=== PATIENT | male | born 1950 | race Caucasian/White ===

== ENCOUNTER → 2018-05-25 | Outpatient (CLI) | payer OTHER ==
[~2018-05-25] MED LIST: ATOR20 PO; Augmentin 875-1 EACH PO; IBUP800 PO; LISI20 PO; Ultram50 MG PO
== END | disposition home or self-care (01) ==
LOC: LAB 11:00 → LAB SHORT 11:00
DX: L03.312 Cellulitis of back [any part except buttock and flank] (principal)
CPT/HCPCS: 87070; 87077; 87186; 87205

== ENCOUNTER → 2023-03-18 | Outpatient (CLI) | payer OTHER ==
[~2023-03-18] MED LIST changes: +FURO40; +KLOR-CON 1010 ME3; +OXYC5
[2023-03-18 13:05] LABS: BASOPHILS ABSOLUTE AUTO 0.04 K/mm3 (0.00-0.23); BASOPHILS PERCENT AUTO 0 % (0-2); EOSINOPHILS PERCENT AUTO 0 % (0-6); Hematocrit 28.2 % (37.0-53.0); Hemoglobin 9.2 g/dL (13.5-17.5); IMMATURE GRAN ABSOLUTE AUTO 0.13 K/mm3 (0.00-0.10); IMMATURE GRAN PERCENT AUTO 1 % (0-1); LYMPHOCYTES ABSOLUTE AUTO 1.06 K/mm3 (0.84-5.20); LYMPHOCYTES PERCENT AUTO 8 % (21-46); MONOCYTES ABSOLUTE AUTO 1.01 K/mm3 (0.16-1.47); MONOCYTES PERCENT AUTO 7 % (4-13); Mean Corpuscular HGB 32.7 pg (26.0-34.0); Mean Corpuscular HGB Conc 32.6 g/dL (31.5-36.5); Mean Corpuscular Volume 100 fL (80-100); Mean Platelet Volume 11.7 fL (9.1-12.4); NEUTROPHILS ABSOLUTE AUTO 11.94 K/mm3 (1.96-9.15); NEUTROPHILS PERCENT AUTO 84 % (41-73); Platelet Count 149 K/mm3 (150-400); RDW Coefficient Variation 18.7 % (11.7-14.2); RDW Standard Deviation 68.4 fL (35.1-46.3); Red Blood Cell Count 2.81 M/mm3 (4.30-5.90); White Blood Cell Count 14.18 K/mm3 (4.00-11.30)
[2023-03-18 13:27] LABS: Albumin, Blood 1.2 g/dL (3.4-5.0); Albumin/Globulin Ratio 0.3 (0.8-1.8); Bilirubin, Total 0.4 mg/dL (0.1-1.0); Bun/Creatinine Ratio 16.5 (12.0-20.0); Calcium, Blood 8.3 mg/dL (8.5-10.1); Creatinine, Blood 1.21 mg/dL (0.60-1.20); Globulin, Blood 3.9 g/dL (2.2-4.0); Potassium, Blood 4.1 mmol/L (3.5-5.5); Total Protein, Blood 5.1 g/dL (6.4-8.2)
== END | disposition home or self-care (01) ==
LOC: LAB SHORT 11:47 → LAB 11:47
PROVIDERS: Internal Medicine Hematology & Oncology
DX: C68.0 Malignant neoplasm of urethra (principal)
CPT/HCPCS: 80053; 85025

== ENCOUNTER → 2023-04-08 | Outpatient (CLI) | payer OTHER ==
[2023-04-08 11:12] LABS: Creatinine Urine 33.4 mg/dL (27.00-270.00); Protein, Urine Quantitative 31.3 mg/dL (0.0-11.9)
== END ==
LOC: LAB SHORT 07:30 → LAB 07:30 → LAB FUT 04-05 13:10
PROVIDERS: Internal Medicine Nephrology
DX: N18.2 Chronic kidney disease, stage 2 (mild) (principal); D63.1 Anemia in chronic kidney disease; E55.9 Vitamin D deficiency, unspecified; D51.8 Other vitamin B12 deficiency anemias; D50.9 Iron deficiency anemia, unspecified
CPT/HCPCS: 81050; 82043; 82570; 84156

== ENCOUNTER 2023-06-25 16:34 | Observation (INO) | payer OTHER ==
[~2023-06-25] VITALS: Ht 177.8 cm; Wt 85.0 kg
[2023-06-25 17:31] LABS: BASOPHILS ABSOLUTE AUTO 0.04 K/mm3 (0.00-0.23); BASOPHILS PERCENT AUTO 0 % (0-2); EOSINOPHILS ABSOLUTE AUTO 0.18 K/mm3 (0.00-0.68); EOSINOPHILS PERCENT AUTO 2 % (0-6); Hematocrit 43.3 % (37.0-53.0); Hemoglobin 14.3 g/dL (13.5-17.5); IMMATURE GRAN ABSOLUTE AUTO 0.02 K/mm3 (0.00-0.10); IMMATURE GRAN PERCENT AUTO 0 % (0-1); LYMPHOCYTES ABSOLUTE AUTO 1.75 K/mm3 (0.84-5.20); LYMPHOCYTES PERCENT AUTO 19 % (21-46); MONOCYTES ABSOLUTE AUTO 0.58 K/mm3 (0.16-1.47); MONOCYTES PERCENT AUTO 6 % (4-13); Mean Corpuscular HGB 30.5 pg (26.0-34.0); Mean Corpuscular Volume 92 fL (80-100); NEUTROPHILS ABSOLUTE AUTO 6.45 K/mm3 (1.96-9.15); NEUTROPHILS PERCENT AUTO 72 % (41-73); Platelet Count 219 K/mm3 (150-400); RDW Coefficient Variation 15.1 % (11.7-14.2); Red Blood Cell Count 4.69 M/mm3 (4.30-5.90); White Blood Cell Count 9.02 K/mm3 (4.00-11.30)
[2023-06-25 17:48] LABS: International Normalized Ratio 1.08; Prothrombin Time Results 11.3 Sec (9.7-11.5)
[2023-06-25 18:02] LABS: Albumin, Blood 1.7 g/dL (3.4-5.0); Albumin/Globulin Ratio 0.3 (0.8-1.8); Bilirubin, Total 0.4 mg/dL (0.1-1.0); Bun/Creatinine Ratio 47.2 (12.0-20.0); Calcium, Blood 8.3 mg/dL (8.5-10.1); Creatinine, Blood 1.44 mg/dL (0.60-1.20); Globulin, Blood 5.6 g/dL (2.2-4.0); Potassium, Blood 3.7 mmol/L (3.5-5.5); Total Protein, Blood 7.3 g/dL (6.4-8.2)
[2023-06-25] MEDS ORDERED: BUME2 PO ×2 (23:10)
[2023-06-25] MEDS ORDERED: POTA10T PO ×2 (23:12)
[2023-06-25 23:40] VITALS: BP 133/94
[2023-06-26 03:17] VITALS: BP 91/57
[2023-06-26 05:45] LABS: BASOPHILS ABSOLUTE AUTO 0.04 K/mm3 (0.00-0.23); BASOPHILS PERCENT AUTO 1 % (0-2); EOSINOPHILS ABSOLUTE AUTO 0.16 K/mm3 (0.00-0.68); EOSINOPHILS PERCENT AUTO 3 % (0-6); Hematocrit 32.5 % (37.0-53.0); Hemoglobin 10.7 g/dL (13.5-17.5); IMMATURE GRAN ABSOLUTE AUTO 0.01 K/mm3 (0.00-0.10); IMMATURE GRAN PERCENT AUTO 0 % (0-1); LYMPHOCYTES ABSOLUTE AUTO 1.22 K/mm3 (0.84-5.20); LYMPHOCYTES PERCENT AUTO 21 % (21-46); MONOCYTES ABSOLUTE AUTO 0.32 K/mm3 (0.16-1.47); MONOCYTES PERCENT AUTO 6 % (4-13); Mean Corpuscular HGB 30.5 pg (26.0-34.0); Mean Corpuscular HGB Conc 32.9 g/dL (31.5-36.5); Mean Corpuscular Volume 93 fL (80-100); Mean Platelet Volume 11.2 fL (9.1-12.4); NEUTROPHILS ABSOLUTE AUTO 4.01 K/mm3 (1.96-9.15); NEUTROPHILS PERCENT AUTO 70 % (41-73); Platelet Count 170 K/mm3 (150-400); RDW Coefficient Variation 15.3 % (11.7-14.2); RDW Standard Deviation 50.6 fL (35.1-46.3); Red Blood Cell Count 3.51 M/mm3 (4.30-5.90); White Blood Cell Count 5.76 K/mm3 (4.00-11.30)
[2023-06-26 06:48] LABS: Albumin, Blood 1.8 g/dL (3.4-5.0); Albumin/Globulin Ratio 0.4 (0.8-1.8); Bilirubin, Total 0.6 mg/dL (0.1-1.0); Bun/Creatinine Ratio 51.2 (12.0-20.0); Calcium, Blood 7.6 mg/dL (8.5-10.1); Creatinine, Blood 1.21 mg/dL (0.60-1.20); Globulin, Blood 4.1 g/dL (2.2-4.0); Potassium, Blood 3.4 mmol/L (3.5-5.5); Total Protein, Blood 5.9 g/dL (6.4-8.2)
[2023-06-26 07:36] VITALS: BP 99/64
[2023-06-26 15:49] VITALS: BP 112/79
--- NOTE | 2023-06-26 19:39 | NUR ---
SHIFT SUMMARY PATIENT ALERT AND INDEPENDENT IN THE ROOM. PATIENT TO HAVE THORACENTESIS IN THE MORNING. PATIENT HAS ABDOMINAL PAIN BUT CHOOSES TO ONLY TAKE A PAIN PILL AT NIGHT. PATIENT LIVES ALONE AND IS CONCERNED ABOUT GETTING BACK HOME TO CARE FOR HIS DOG. DR. SCOTT SPOKE WITH ONCOLOGY REGARDING CASE. POSSIBLE RECOMMENDATION FOR PLEURIX DRAIN TO BE PLACED.
[2023-06-26 20:07] VITALS: BP 118/76
[2023-06-27 02:40] VITALS: BP 96/62
--- NOTE | 2023-06-27 06:29 | NUR ---
SHIFT SUMMARY NOC PT A/O X 4. PLEASANT AND COOPERATIVE WITH CARE. DURING ROUNDING RT FOUND PT SPO2 <90% ON RA AND PT PLACED ON 1L/NC. PT HAS THORACENTISIS SCHEDULED FOR TODAY. PT ON TELE RUNNING SINUS RHYTHM IN 'S. PT HAD C/O OF L ABD PAIN AND MEDICATED PER EMAR BEFORE BED. PT POSSIBLE DISCHARGE HOME TODAY. PT IS CURRENTLY RESTING WITH BED IN LOWEST POSITION, AND CALL LIGHT WITHIN REACH.
[2023-06-27 07:25] VITALS: BP 102/64
[2023-06-27 08:32] LABS: BASOPHILS ABSOLUTE AUTO 0.04 K/mm3 (0.00-0.23); BASOPHILS PERCENT AUTO 1 % (0-2); EOSINOPHILS ABSOLUTE AUTO 0.15 K/mm3 (0.00-0.68); EOSINOPHILS PERCENT AUTO 3 % (0-6); Hematocrit 35.6 % (37.0-53.0); Hemoglobin 11.6 g/dL (13.5-17.5); IMMATURE GRAN ABSOLUTE AUTO 0.01 K/mm3 (0.00-0.10); IMMATURE GRAN PERCENT AUTO 0 % (0-1); LYMPHOCYTES ABSOLUTE AUTO 1.68 K/mm3 (0.84-5.20); LYMPHOCYTES PERCENT AUTO 32 % (21-46); MONOCYTES ABSOLUTE AUTO 0.26 K/mm3 (0.16-1.47); MONOCYTES PERCENT AUTO 5 % (4-13); Mean Corpuscular HGB 30.2 pg (26.0-34.0); Mean Corpuscular HGB Conc 32.6 g/dL (31.5-36.5); Mean Corpuscular Volume 93 fL (80-100); Mean Platelet Volume 11.7 fL (9.1-12.4); NEUTROPHILS ABSOLUTE AUTO 3.13 K/mm3 (1.96-9.15); NEUTROPHILS PERCENT AUTO 59 % (41-73); Platelet Count 173 K/mm3 (150-400); Red Blood Cell Count 3.84 M/mm3 (4.30-5.90); White Blood Cell Count 5.27 K/mm3 (4.00-11.30)
[2023-06-27 08:57] LABS: Albumin, Blood 1.7 g/dL (3.4-5.0); Albumin/Globulin Ratio 0.4 (0.8-1.8); Bilirubin, Total 0.7 mg/dL (0.1-1.0); Bun/Creatinine Ratio 42.2 (12.0-20.0); Calcium, Blood 7.9 mg/dL (8.5-10.1); Creatinine, Blood 1.09 mg/dL (0.60-1.20); Globulin, Blood 4.5 g/dL (2.2-4.0); Potassium, Blood 4.1 mmol/L (3.5-5.5); Total Protein, Blood 6.2 g/dL (6.4-8.2)
[2023-06-27 11:43] LABS: Automated BF WBC Count 0.058 K/mm3 (0-999)
[2023-06-27 12:20] LABS: Body Fluid WBC Count 58 /mm3 (0-999)
[2023-06-27 12:44] LABS: RBC Count, Body Fluid 3 /mm3 (0-0)
--- NOTE | 2023-06-27 13:15 | NUR ---
PATIENT RETURNED FROM THORACENTSIS. DENIES INCREASED PAIN, SOB. O2 SAT IS 97-98% ON ROOM AIR. HE DECLINED SCHEDULED RT TREATMENT BECAUSE HE STATED HE DIDN'T FEEL THAT HE NEEDED IT. DR. SCOTT NOTIFIED, BUT STATED THAT PT NEEDS TO STAY O/N FOR OBSERVATION. PATIENT NOTIFIED.
[2023-06-27 13:17] LABS: Lactate Dehydrogenase, Body Fl 62 U/L; Protein, Body Fluid 3.6 g/dL
[2023-06-27 13:19] LABS: Triglycerides, Body Fluid >4000 mg/dL
[2023-06-27 13:21] VITALS: BP 94/64
[2023-06-27 13:59] LABS: Color, Body Fluid White (None-Yellow); Total Cell Count, Body Fluid 100
[2023-06-27 14:00] LABS: Appearance, Body Fluid Turbid (Clear)
[2023-06-27 14:17] VITALS: BP 94/55
[2023-06-27 14:53] VITALS: BP 106/63
--- NOTE | 2023-06-27 19:00 | NUR ---
SHIFT SUMMARY: TOLERATED THORACENTESIS WELL, STATED HE FEELS MUCH BETTER. O2 SAT IS 97-98% ON RA, DENIED NEED FOR RT TREATMENT, RESP EVEN AND UNLABORED. STATED PAIN IS WELL CONTROLLED. TOLERATING PO INTAKE, APPETITE IS GOOD. IS LOOKING FORWARD TO GOING HOME TOMORROW.
[2023-06-27 19:29] VITALS: BP 94/60
[2023-06-28 04:03] VITALS: BP 98/67
--- NOTE | 2023-06-28 05:55 | NUR ---
SHIFT SUMMARY NOC A/O X 4. PLEASANT AND COOPERATIVE WITH CARE. NO ACUTE CHANGES TO REPORT. PT REQUESTED PAIN RX FOR BEDTIME FOR SLEEP. PT REMAINED ON RA T/O SHIFT WITH NO SOB. PT SHOULD DISCHARGE HOME TODAY AFTER MEETING WITH DR MENDOZA/ONCOLOGIST WHO FOLLOWS PT. PT IS EAGER TO GET HOME TO SEE HIS DOG. PT IS CURRENTLY RESTING WITH BED IN LOWEST POSITION, AND CALL LIGHT WITHIN REACH.
[2023-06-28 07:28] VITALS: BP 93/60
--- NOTE | 2023-06-28 15:28 | NUR ---
DC- PT LEFT FOR DC IN STABLE CONDITION AT 1500. PT BROUGHT DOWN IN WC TO HIS CAR. PT LEFT WITH ALL BELONGINGS.
== END 2023-06-28 14:50 | disposition home or self-care (01) ==
LOC: ER 16:34 → MEDS 16:35
PROVIDERS: Internal Medicine; Physician Assistant; ADMIT Internal Medicine
DX: J91.0 Malignant pleural effusion (principal); C67.9 Malignant neoplasm of bladder, unspecified; E43 Unspecified severe protein-calorie malnutrition; E87.6 Hypokalemia; N17.9 Acute kidney failure, unspecified; I10 Essential (primary) hypertension; Z79.899 Other long term (current) drug therapy
CPT/HCPCS: 32555; 36415; 71045; 80053; 82042; 83615; 83880; 84157; 84478; 85025; 85610; 87070; 87075; 87205; 88108; 88305; 88341; 88342; 89051; 94640; 94760; 94761; 96372; 96374; 96375; 99285-25; A9270; G0378; J1650; J1940; P9047

== ENCOUNTER 2023-07-07 12:04 | Observation (INO) | payer OTHER ==
[~2023-07-07] VITALS: Ht 177.8 cm; Wt 75.0 kg
[~2023-07-07 12:04] MED LIST changes: +BUME2 PO; +POTA10T PO
[2023-07-07 14:24] LABS: Hematocrit 32.9 % (37.0-53.0); Hemoglobin 11.5 g/dL (13.5-17.5); Mean Corpuscular HGB 30.4 pg (26.0-34.0); Mean Corpuscular Volume 87 fL (80-100); Mean Platelet Volume 10.8 fL (9.1-12.4); NRBC ABSOLUTE 0.04 K/mm3 (0.00-0.02); NRBC Auto 22.2 /100 WBC (0.0-0.2); Platelet Count 55 K/mm3 (150-400); RDW Coefficient Variation 13.9 % (11.7-14.2); RDW Standard Deviation 44.1 fL (35.1-46.3); Red Blood Cell Count 3.78 M/mm3 (4.30-5.90)
[2023-07-07 14:30] LABS: BASOPHILS PERCENT AUTO 0 % (0-2); EOSINOPHILS PERCENT AUTO 0 % (0-6); IMMATURE GRAN PERCENT AUTO 0 % (0-1); LYMPHOCYTES ABSOLUTE AUTO 0.14 K/mm3 (0.84-5.20); LYMPHOCYTES PERCENT AUTO 78 % (21-46); MONOCYTES ABSOLUTE AUTO 0.03 K/mm3 (0.16-1.47); MONOCYTES PERCENT AUTO 17 % (4-13); NEUTROPHILS ABSOLUTE AUTO 0.01 K/mm3 (1.96-9.15); NEUTROPHILS PERCENT AUTO 6 % (41-73)
[2023-07-07 14:32] LABS: White Blood Cell Count 0.18 K/mm3 (4.00-11.30)
[2023-07-07 14:41] LABS: Albumin, Blood 1.4 g/dL (3.4-5.0); Albumin/Globulin Ratio 0.3 (0.8-1.8); Bilirubin, Total 0.9 mg/dL (0.1-1.0); Bun/Creatinine Ratio 25.6 (12.0-20.0); Calcium, Blood 8.2 mg/dL (8.5-10.1); Creatinine, Blood 1.64 mg/dL (0.60-1.20); Globulin, Blood 5.1 g/dL (2.2-4.0); Magnesium, Blood 2.1 mg/dL (1.6-2.4); Potassium, Blood 3.2 mmol/L (3.5-5.5); Total Protein, Blood 6.5 g/dL (6.4-8.2)
[2023-07-07 15:47] LABS: Automated BF WBC Count 0.008 K/mm3 (0-999)
[2023-07-07 15:48] LABS: Body Fluid WBC Count 8 /mm3 (0-999)
[2023-07-07 16:08] LABS: Glucose, Body Fluid 228 mg/dL
[2023-07-07 16:10] LABS: RBC Count, Body Fluid 10 /mm3 (0-0)
[2023-07-07 16:47] LABS: Adenovirus Not Detected (NOT DETECT); Bordetella pertussis Not Detected (NOT DETECT); Chlamydophila pneumoniae Not Detected (NOT DETECT); Coronavirus 229E Not Detected (NOT DETECT); Coronavirus HKU1 Not Detected (NOT DETECT); Coronavirus NL63 Not Detected (NOT DETECT); Coronavirus OC43 Not Detected (NOT DETECT); Human Metapneumovirus Not Detected (NOT DETECT); Human Rhinovirus/Enterovirus Not Detected (NOT DETECT); Influenza A/2009-H1 Not Detected (NOT DETECT); Influenza A/H1 Not Detected (NOT DETECT); Influenza A/H3 Not Detected (NOT DETECT); Influenza B Not Detected (NOT DETECT); Mycoplasma pneumoniae Not Detected (NOT DETECT); Parainfluenza Virus 1 Not Detected (NOT DETECT); Parainfluenza Virus 2 Not Detected (NOT DETECT); Parainfluenza Virus 3 Not Detected (NOT DETECT); Parainfluenza Virus 4 Not Detected (NOT DETECT); Respiratory Syncytial Virus Not Detected (NOT DETECT); SARS-Cov-2 (COVID-19), BioFire Not Detected (NOT DETECT)
[2023-07-07 16:56] LABS: Total Cell Count, Body Fluid 25
[2023-07-07 16:57] LABS: Appearance, Body Fluid Turbid (Clear)
[2023-07-07 17:30] LABS: Amylase, Body Fluid 31 U/L
[2023-07-07 17:31] LABS: Triglycerides, Body Fluid 3706 mg/dL
[2023-07-07 17:49] LABS: Lactate Dehydrogenase, Body Fl 53 U/L
[2023-07-07 18:00] VITALS: BP 107/66
--- NOTE | 2023-07-07 18:41 | NUR ---
ADMIT 1830- ORIENTED TO ROOM SET UP AND SAFETY. PT A/O X4. KNOWS LIMITS. DENIES PAIN CURRENTLY. RESP DYSPNIC INITIALLY UPON TX TO BED AND RESOLVED AFTER SITTING UP A FEW MINUTES. TOLERATING GENERAL DINNER. VERBAL AND PLEASANT. COUGHING UP LG AMOUNTS OF PHLEGM INTO EMESIS BAG. HX COMPLETE. WILL PERFORM ASSESSMENT AFTER PT THROUGH WITH DINNER, WILL PASS TO NIGHT RN
--- NOTE | 2023-07-07 21:30 | NUR ---
PATIENTS FRIEND MOVED PATIENTS CARE FROM LAB OR DOCTORS OFFICE NEAR HOSPITAL IN THE [facility]-IN THE FIRST PARKING SPOT IN FRONT OF "[facility]" SIGN. PATIENT HAS CAR WILKS WITH HIM IN ROOM .
--- NOTE | 2023-07-08 04:55 | NUR ---
SHIFT SUMMARY. PATIENT IS A/O X4. PATIENT SLEPT MOST OF SHIFT AND IS COMPLIANT WITH CARE. SUCTION SET UP IN ROOM FOR PRODUCTIVE COUGH. PATIENT IS ABLE TO ASSIST WITH CHANGING BY ROLLING. PATIENT HAS HAD SEVERAL BM'S TONIGHT. PATIENT HAS PRESSURE SORE ON LEFT BOTTOCKS-CREAM APPLIED. PATIENT IS COMFORT CARE WITH PLANS TO DISCHARGE ON HOSPICE. BED IS LOCKED IN LOWEST POSITION WITH CALL LIGHT IN REACH.
--- NOTE | 2023-07-08 13:31 | NUR ---
VISITED WITH THE PATIENT, FRIEND TIMA, AND [facility] ARNOLDO. DISCUSSED WITH LEANDRO ABOUT HIS GOALS FOR CARE. I DISCUSSED THE PROCESS OF GOING HOME ON HOSPICE. LEANDRO WAS A HESITANT TO HAVE THIS CONVERSATION AT THIS TIME, HE REPORTED THAT HE DID NOT FEEL WELL ENOUGH AT THIS POINT TO CONSIDER GOING HOME. TIMA AND ARNOLDO REPORTED THAT LEANDRO WOULD PROBABLY PREFER TO GO HOME, BUT HAD SOME CONCERNES ABOUT THE SAFTY OF HIM LEAVING THE HOSPITAL. TIMA REPORTED THAT HE COULD PROBABLY GO TO [facility] TO CHECK ON HIM A FEW TIMES A DAY, BUT THAT THERE WOULD NOT BE SOMEONE THERE WITH HIM ALL THE TIME. PATIENT REPORTED THAT HE WAS HAVING SOME SORTNESS OF BREATH AFTER AMBULATION. I ASKED IF THE ROXANOL THAT HE HAD RECIEVED EARLIER HELPED AND IF HE WOULD LIKE ANOTHER DOSE. HE REQUESTED TO HOLD OFF ON IT FOR NOW.
--- NOTE | 2023-07-08 18:13 | NUR ---
SHIFT SUMMARY: PT IS A 72 YEAR OLD MALE HERE ON COMFORT CARE FOR STAGE IV UROTHELIAL CANCER. PATIENT CONTINUES TO TAKE BUMEX PART OF HIS COMFORT CARE. HE IS AMBULATORY WITH 1 ASSIST FWW AND GAIT BELT. HE IS ALERT AND ORIENTED X3 AND IS EATING AND DRINKING. HE DOES COUGH AFTER DRINKING LIQUIDS, BUT AFTER DISCUSSING THIS WITH DR. LANDA, NO CONCERN OR CHANGE IN CARE OR NEW ORDERS. HE WILL USE HIS CALL LIGHT AND WILL REPORT NEEDS. PLAN IS FOR HIM TO DICHARGE ON HOSPICE, BUT AWAITING PLACEMENT DUE TO LIVING ALONE. FRIENDS CAME AND VISITED THE PATIENT TODAY; THANH, BRITANY (POA), AND LAI. PATIENT IS IN BED RESTING; BREATHING EVEN AND UNLABORED, CALL LIGHT WITHIN REACH, AND BED IN LOWEST POSITION.
--- NOTE | 2023-07-09 05:06 | NUR ---
NOC SHIFT SUMMARY: PT. IS COMFORT CARE. MORPHINE GIVEN TWICE OVERNIGHT. CONTINUING TO WORK ON PLAN FOR DISCHARGE WITH HOSPICE. PATIENT REPOSITIONED. BED ALARM IN PLACE. CALL LIGHT WITHIN REACH. BED IN LOW POSITION.
--- NOTE | 2023-07-09 11:06 | NUR ---
NURSE NOTE: CHECKED ON PATIENT AT 0935 AND PATIENT WAS UNRESPONIVE, PALE, EYES OPEN AND NOT BREATHING. CHARGE NURSE CONTACTED AND DID A 2 RN CHECK AND DETERMINED TIME OF AT 0935. DR. LANDA NOTIFIED. CHARGE NURSE STATED SHE WOULD CONTACT FAMILY OF PATIENT. POST MORTEM CARE PROVIDED TO PATIENT.
--- NOTE | 2023-07-09 19:53 | NUR ---
REVIEWED PT'S INFORMATION R/T CALL FROM ENROLLMENT ELIGIBILITY REPRESENTATIVE THANH, ADVISED THANH TO CALL PT'S NEXT OF KIN CONTACT BRITANY TO GET AN UPDATE WE COULD NOT SHARE INFORMATION R/T BRENDAN
== END 2023-07-09 09:35 ==
LOC: ER 12:04 → MEDS 12:05 → ENPENDDIS 07-09 09:35
PROVIDERS: Student in an Organized Health Care Education/Training Program; ADMIT Family Medicine
DX: D70.9 Neutropenia, unspecified (principal); I12.9 Hypertensive chronic kidney disease with stage 1 through stage 4 chronic kidney disease, or unspecified chronic kidney disease; N18.9 Chronic kidney disease, unspecified; C66.9 Malignant neoplasm of unspecified ureter; J91.0 Malignant pleural effusion; Z51.5 Encounter for palliative care; Z66 Do not resuscitate
CPT/HCPCS: 0202U; 32555; 36415; 71045; 80053; 82150; 82945; 83605; 83615; 83735; 83880; 84145; 84157; 84478; 84484; 85025; 87040; 87070; 87075; 87077; 87186; 87205; 89051; 93005; 93010; 96374; 99285-25; A9270; G0378; J1170; J7030